=== PATIENT | female | born 1960 | race Caucasian/White ===

== ENCOUNTER → 2022-01-16 | Outpatient (CLI) | payer OTHER | LOC: M WUC 15:29 | PROVIDERS: ATTEND Student in an Organized Health Care Education/Training Program | DX: Z02.1 Encounter for pre-employment examination (principal) ==

== ENCOUNTER 2024-07-11 18:49 | Emergency (ER) | payer OTHER ==
[~2024-07-11] VITALS: Ht 157.5 cm; Wt 85.3 kg
[2024-07-12] MEDS: ACETAMINOPHEN 500 MG TAB PO ONE (01:30)
[2024-07-12] MEDS: KETOROLAC 60MG 2ML VIAL IM ONE (01:30)
[2024-07-12] MEDS: methocarbamoL 500 MG TAB PO ONE (01:30)
[2024-07-12] MEDS ORDERED: METH-1164 PO (02:05)
[2024-07-12 02:13] VITALS: BP 124/64; TEMP 97.6; O2SAT 97
== END 2024-07-12 02:15 | disposition home or self-care (01) ==
LOC: M ED 18:49
DX: M54.32 Sciatica, left side (principal); J44.9 Chronic obstructive pulmonary disease, unspecified; K21.9 Gastro-esophageal reflux disease without esophagitis
CPT/HCPCS: 93971; 96372; 99283; J1885